=== PATIENT | male | born 1965 | race American Indian/Alaskan Native ===

== ENCOUNTER 2020-08-29 13:19 | Emergency (ER) | payer SELFPAY ==
[2020-08-29 13:32] VITALS: TEMP 97.7; BMI 32.0
[2020-08-29 16:57] VITALS: BP 106/85; PULSE 70
== END 2020-08-29 16:56 | disposition home or self-care (01) ==
LOC: JER 13:19
DX: R55 Syncope and collapse (principal)
CPT/HCPCS: 93005; 93010; 99283-25